=== PATIENT | male | born 1975 | race Caucasian/White ===

== ENCOUNTER 2019-10-01 08:58 | Outpatient (REF) | payer MEDICAID, SELFPAY ==
[2019-10-01 21:14] LABS: Calculated LDL 167 mg/dL; Cholesterol 290 mg/dL (50-200); Glucose 96 mg/dL (70-100); HDL Cholesterol 55 mg/dL (40-60); Triglyceride 342 mg/dL (30-150)
== END 2019-10-01 09:18 ==
LOC: NCHCN 08:58
PROVIDERS: PCP Nurse Practitioner Family; Visit Provider Nurse Practitioner Family
DX: Z13.1 Encounter for screening for diabetes mellitus (principal); Z13.220 Encounter for screening for lipoid disorders; Z00.00 Encounter for general adult medical examination without abnormal findings
CPT/HCPCS: 80061; 82947

== ENCOUNTER 2025-10-15 09:41 | Outpatient (REF) | payer BC, SELFPAY ==
[2025-10-15 16:47] LABS: Abs Immature Grans 0.05 10^3/uL (0.0-0.06); HCT 43.5 % (40.0-50.0); HGB 14.2 g/dL (13.5-17.5); Immature Grans % 0.6 %; MCH 29.9 pg (27.0-33.0); MCHC 32.6 % (32.0-36.0); MCV 92 fL (80-95); MPV 11.4 fL (8.0-11.0); Platelet Count 218 10^3/uL (130-400); RBC 4.75 10^6/uL (4.36-5.78); RDW 12.4 % (11.8-14.1); RDW-SD 42.1 fL; WBC 7.72 10^3/uL (4.4-10.8)
[2025-10-15 16:56] LABS: ALT 40 U/L (10-49); AST 25 U/L (<34); Albumin 4.8 g/dL (3.2-5.0); Alkaline Phosphatase 101 U/L (46-116); Anion Gap 7.6 mmol/L (3-11); BUN 16 mg/dL (9-23); Bilirubin, Total 0.30 mg/dL (0.2-1.2); CO2 28.4 mmol/L (20.0-31.0); Calcium 9.0 mg/dL (8.3-10.6); Chloride 104 mmol/L (98-107); Cholesterol 291 mg/dL (<200); Glucose 118 mg/dL (74-106); HDL Cholesterol 65 mg/dL (>40); Potassium 4.6 mmol/L (3.5-5.1); Sodium 140 mmol/L (136-145); Total Protein 7.7 g/dL (5.7-8.2)
[2025-10-15 17:19] LABS: Hemoglobin A1C 6.3 % (<5.7)
[2025-10-16 18:38] LABS: PSA, Screening 0.5 ng/mL (<=3.5)
== END 2025-10-15 09:42 | disposition home or self-care (01) ==
LOC: NCHCN 09:41
PROVIDERS: PCP Nurse Practitioner Family; Visit Provider Physician Assistant
DX: Z12.5 Encounter for screening for malignant neoplasm of prostate (principal); E78.5 Hyperlipidemia, unspecified; Z13.1 Encounter for screening for diabetes mellitus; Z13.228 Encounter for screening for other metabolic disorders; Z13.0 Encounter for screening for diseases of the blood and blood-forming organs and certain disorders involving the immune mechanism
CPT/HCPCS: 80053; 80061; 83721; 84153; 83036; 85025